=== PATIENT | female | born 1965 | race Caucasian/White ===

== ENCOUNTER 2017-12-07 10:55 | Inpatient (IN) | payer OTHER ==
[~2017-12-07] VITALS: Ht 165.1 cm; Wt 77.7 kg
--- NOTE | 2017-12-07 11:15 | ED GI/GU/ABDOMINAL COMPLAINT ---
History of Present Illness General Chief Complaint: Abdominal Pain/Flank Pain Stated Complaint: LOWER ABD PAIN/LOWER BACK PAIN Source: patient Exam Limitations: no limitations Vital Signs & Intake/Output Vital Signs & Intake/Output Vital Signs Date Time Temp Pulse Resp B/P B/P Pulse O2 O2 Flow FiO2 Mean Ox Delivery Rate 12/07 1338 97.0 70 16 106/59 95 Room Air 12/07 1106 98.0 91 18 113/69 98 Room Air Allergies Coded Allergies: No Known Drug Allergies (Intermediate, NONE 12/07/17) Reconcile Medications Aspirin (Ecotrin*) 81 MG TABLET.DR 1 TAB PO DAILY HEART/BLOOD (Reported) Calcium Carbonate (Calcium) 500 MG CALCIUM (1,250 MG) TABLET 1 CAP PO DAILY SUPPLEMENT (Reported) Cholecalciferol (Vitamin D3) (Vitamin D) 1,000 UNIT TABLET 1 TAB PO DAILY SUPPLEMENT (Reported) Cranberry Conc/Ascorbic Acid (Cranberry Plus Vitamin C Sftgl) (Unknown Strength) CAPSULE 4,200 MG PO DAILY SUPPLEMENT (Reported) Cyanocobalamin (Vitamin B-12) 1,000 MCG TABLET 1 TAB PO DAILY SUPPLEMENT ( Reported) Magnesium 250 MG TABLET 1 TAB PO DAILY SUPPLEMENT (Reported) Metoprolol Succinate 25 MG TAB 1 TAB PO DAILY HEART/BP (Reported) Milk Thistle Seed Extract (Milk Thistle) 175 MG CAPSULE 1 CAP PO DAILY SUPPLEMENT (Reported) Selenomethionine (Selenium) 200 MCG TABLET 1 TAB PO DAILY SUPPLEMENT ( Reported) Ubidecarenone (Co Q-10) 50 MG CAPSULE 1 CAP PO DAILY SUPPLEMENT (Reported) Venlafaxine HCl (Venlafaxine HCl ER) 150 MG CAP.ER.24H 1 CAP PO DAILY DEPRESSION (Reported) Triage Note: C/O LOWER ABDOMINAL AND BACK PAIN, LEG CRAMPS X 2 DAYS. LAST BM: 12/06. ALSO C/O NAUSEA AND PAIN ON URINATION. Triage Nurses Notes Reviewed? yes ? N Is pt currently ? No Onset: Gradual Duration: constant Quality/Severity: stabbing, throbbing Severity Numbers: 7 HPI: Patient is a 52-year-old female with past medical history of kidney stones, depression, and SVT currently on metoprolol who presents emergency room with a 48 hour history of gradual onset of lower abdominal pelvic pain with now pain localized to the left lower quadrant region Patient has mild associated back pain Denies similar symptoms of previous kidney stone Denies any fever chills shortness breath chest pain arm pain jaw pain Positive for nausea without emesis No change in bowel habits denies any hematuria dysuria vaginal bleeding or discharge Past History Travel History Traveled to [place] past 21 day No Medical History Any Pertinent Medical History? see below for history Cardiovascular: SVT Renal: nephrolithiasis Psychiatric: depression Surgical History Surgical History: appendectomy Psychosocial History What is your primary language [place] Tobacco Use: Never used ETOH Use: occasional use Family History Hx Contributory? No Review of Systems Review of Systems Constitutional: Reports: no symptoms. EENTM: Reports: no symptoms. Respiratory: Reports: no symptoms. Cardiovascular: Reports: no symptoms. GI: Reports: see HPI, abdominal pain. Genitourinary: Reports: no symptoms. Musculoskeletal: Reports: no symptoms. Skin: Reports: no symptoms. Neurological/Psychological: Reports: no symptoms. Hematologic/Endocrine: Reports: no symptoms. Immunologic/Allergic: Reports: no symptoms. All Other Systems: Reviewed and Negative Physical Exam Physical Exam General Appearance: mild distress Head: atraumatic Eyes: Bilateral: normal appearance. Ears, Nose, Throat, Mouth: hearing grossly normal Neck: normal inspection Respiratory: normal breath sounds Gastrointestinal: normal bowel sounds, LLQ PAIN NO PERITONEAL SIGNS Extremities: normal range of motion Neurologic/Psych: no motor/sensory deficits Skin: intact, normal color Core Measures ACS in differential dx? No Sepsis Present: No Sepsis Focused Exam Completed? No Progress Differential Diagnosis: AAA, AMI, biliary colic, bowel obstruction, colon cancer , cholecystitis, diverticulitis, endometritis, esophageal varices, gastritis, hepatitis, hernia, hemorrhoids, ischemic bowel, inflamm bowel dis, kidney stone, Nessa-Bernabe tear, ovarian cyst, ovarian torsion, pancreatitis, PID/cervicitis, peptic ulcer, PUD/GERD, perforated viscous, SBO, UTI/pyelo Plan of Care: Orders Procedure Date/time Status Clear Liquid Diet 12/07 D Active LACTIC ACID 12/07 1440 Active Patient Data 12/07 1425 Active Misc Message 12/07 1422 Active ED Holding Orders 12/07 1422 Active Admit to inpatient 12/07 1422 Active Vital Signs 12/07 1422 Active Code Status 12/07 1422 Active BLOOD CULTURE 12/07 1406 Active EKG 12/07 1403 Active Add-on Test (ER Only) 12/07 1211 Active LACTIC ACID 12/07 1157 Complete LIPASE 12/07 1140 Complete COMPREHENSIVE METABOLIC PANEL 12/07 1140 Complete CBC WITHOUT DIFFERENTIAL 12/07 1140 Complete CULTURE,URINE 12/07 1115 Active URINALYSIS 12/07 1109 Complete Current Medications Sig/Cris Start time Last Medication Dose Stop Time Status Admin Sodium Chloride 500 ML BOLUS ONE 12/07 1415 AC 12/07 (Normal Saline 0.9%) 12/07 1514 1410 Metronidazole 500 MG ONCE ONE 12/07 1400 AC (Flagyl) 12/07 1459 N/A 1 UNIT (No Carrier) Laboratory Tests 12/07/17 1157: Lactic Acid 1.3 12/07/17 1150: Anion Gap 11, Estimated GFR > 60, BUN/Creatinine Ratio 15.0, Glucose 120 H, Calcium 9.8, Total Bilirubin 0.6, AST 11 L, ALT 17, Alkaline Phosphatase 95, Total Protein 6.8, Albumin 3.9, Globulin 2.9, Albumin/Globulin Ratio 1.3, Lipase 51, CBC w Diff MAN DIFF ORDERED, RBC 4.33, MCV 91.5, MCH 31.1 H, MCHC 34.0, RDW 13.4, MPV 7.8, Gran % 76.3 H, Lymphocytes % 16.8 L, Monocytes % 5.2, Eosinophils % 1.3, Basophils % 0.4, Absolute Granulocytes 12.9 H, Absolute Lymphocytes 2.8, Absolute Monocytes 0.9 H, Absolute Eosinophils 0.2, Absolute Basophils 0.1, Platelet Estimate ADEQUATE, Normocytic RBCs VERIFIED, Normochromic RBCs VERIFIED 12/07/17 1115: Urinalysis LIGHT H, Urine Color YEL, Urine Clarity HAZY H, Urine pH 6.5, Ur Specific Molina 1.010, Urine Protein TRACE H, Urine Ketones NEG, Urine Nitrite NEG, Urine Bilirubin NEG, Urine Urobilinogen 0.2, Ur Leukocyte Esterase TRACE H , Ur Microscopic SEDIMENT EXAMINED, Urine RBC 1-3, Urine WBC 3-5 H, Ur Epithelial Cells MANY H, Urine Bacteria MANY H, Urine Mucus FEW, Urine Hemoglobin TRACE-INTACT, Urine Glucose NEG Microbiology 12/07 1425 BLOOD: Blood Culture - RECD 12/07 1406 BLOOD: Blood Culture - ORD 12/07 1115 URINE ROUT: Urine Culture - RECD After morphine and Zofran were administered patient had improvement of symptoms, patient resting comfortably at bedside. CT scan still pending. Patient was updated on blood work CT scan was resulted showing extensive diverticulitis without any perforation at this time I had a long extensive conversation with patient and how she felt of her pain control and her presentation where she was administered IV antibiotics in the emergency room for the extensive diverticulitis with patient did not feel comfortable with outpatient treatment for her presentation of pain and due to patient's extensive diverticulitis that outpatient therapy could be medically harmful for patient. Upon admission no concerns of septic shock or severe sepsis Diagnostic Imaging: Viewed by Me: CT Scan. Radiology Impression: acute abnormality Initial ED EKG: none Comments: PATIENT: KYLIE MAGANA PRESENT AGE: 52 PATIENT ACCOUNT NO: [id number] : 67 LOCATION: [facility] ORDERING PHYSICIAN: Jean Claude ROBERSON SERVICE DATE: 12/07/17 EXAM TYPE: CAT - CT ABD & PELVIS W IV CONTRAST EXAMINATION: CT ABDOMEN AND PELVIS WITH CONTRAST CLINICAL INFORMATION: 52-year-old woman with left lower quadrant pain. COMPARISON: None TECHNIQUE: Multidetector volumetric imaging was performed of the abdomen and pelvis following IV administration of 95 mL of Optiray 320 intravenous contrast. Sagittal and coronal reformatted images were obtained on the technologist's workstation. DLP: 305 mGy-cm FINDINGS: The lung bases are clear. Multiple hypodensities are seen within the liver and are statistically most likely to reflect cysts. The spleen, pancreas, adrenals, kidneys, and gallbladder are normal in appearance. There is extensive wall thickening, hyperemia, and enhancement of the proximal sigmoid colon due to acute diverticulitis. No gross perforation or drainable fluid collection is noted. There is surrounding mesenteric stranding. Nondilated loops of small bowel are unremarkable. The terminal ileum is not inflamed. The appendix is not clearly identified, although no inflammation is seen in the right lower quadrant to suggest acute appendicitis. The uterus, adnexal structures, and bladder are normal in appearance. IMPRESSION: Extensive sigmoid diverticulitis. No yudy perforation or drainable fluid collection. DICTATED BY: Pauline Mitchell MD DATE/TIME DICTATED:12/07/171339 FISH TRAPPER:NI DATE/TIME TRANSCRIBED:12/07/171339 CONFIDENTIAL, DO NOT COPY WITHOUT APPROPRIATE AUTHORIZATION. <Electronically signed in Other Vendor System> SIGNED BY: Pauline Mitchell MD 12/07/17 9514 Departure Departure Disposition: STILL A PATIENT Condition: Stable Clinical Impression Primary Impression: Diverticulitis Referrals: Jordi GUAJARDO,Philippe Gold (PCP/Family) Departure Forms: Customer Survey General Discharge Information Admission Note Spoke With: Maura Wheatley MD Documentation of Exam: Documentation of any treatments & extenuating circumstances including Concerns Regarding Discharge (functional status, medication knowledge or non-compliance, living conditions, etc.) that warrant an admission rather than observation: [ Patient requires IV antibiotics pain management gastroenterology consultation repeat labs] Critical Care Note Critical Care Note Critical Care Time: 30-74 min
[2017-12-07 12:05] LABS: ABSOLUTE BASOPHIL COUNT 0.1 /CUMM (0.0-0.2); ABSOLUTE EOSINOPHIL COUNT 0.2 /CUMM (0.0-0.7); ABSOLUTE GRANULOCYTE CT 12.9 /CUMM (1.4-6.5); ABSOLUTE LYMPH COUNT 2.8 /CUMM (1.2-3.4); ABSOLUTE MONOCYTE COUNT 0.9 /CUMM (0.10-0.60); BASOPHIL % 0.4 % (0.0-2.0); EOSINOPHIL % 1.3 % (0-5); GRANULOCYTE % 76.3 % (42.2-75.2); HEMATOCRIT 39.6 % (37-47); MEAN CORPUSCULAR HGB 31.1 PG (27.0-31.0); MEAN CORPUSCULAR VOLUME 91.5 FL (81.0-99.0); MEAN PLATELET VOLUME 7.8 FL (7.4-10.4); PLATELET COUNT 303 /CUMM (130-400); RBC DISTRIBUTION WIDTH 13.4 % (11.5-14.5); RED BLOOD CELL CT 4.33 /CUMM (4.20-5.40); WHITE BLOOD CELL COUNT 16.9 /CUMM (4.8-10.8)
--- NOTE | 2017-12-07 13:49 | CT SCAN REPORT ---
EXAMINATION: CT ABDOMEN AND PELVIS WITH CONTRAST CLINICAL INFORMATION: 52-year-old woman with left lower quadrant pain. COMPARISON: None TECHNIQUE: Multidetector volumetric imaging was performed of the abdomen and pelvis following IV administration of 95 mL of Optiray 320 intravenous contrast. Sagittal and coronal reformatted images were obtained on the technologist's workstation. DLP: 305 mGy-cm FINDINGS: The lung bases are clear. Multiple hypodensities are seen within the liver and are statistically most likely to reflect cysts. The spleen, pancreas, adrenals, kidneys, and gallbladder are normal in appearance. There is extensive wall thickening, hyperemia, and enhancement of the proximal sigmoid colon due to acute diverticulitis. No gross perforation or drainable fluid collection is noted. There is surrounding mesenteric stranding. Nondilated loops of small bowel are unremarkable. The terminal ileum is not inflamed. The appendix is not clearly identified, although no inflammation is seen in the right lower quadrant to suggest acute appendicitis. The uterus, adnexal structures, and bladder are normal in appearance. IMPRESSION: Extensive sigmoid diverticulitis. No yudy perforation or drainable fluid collection.
[2017-12-07] MEDS ORDERED: VENLAFAXINE HC150 MG PO (14:17)
[2017-12-07] MEDS ORDERED: METOPROLOL SUCC25 M1 PO (14:18)
[2017-12-07] MEDS ORDERED: SELENIUM200 MC1 PO (14:19)
[2017-12-07] MEDS ORDERED: MILK THISTLE175 M1 PO (14:26)
[2017-12-07] MEDS ORDERED: ASPIRIN EC81 M1 PO (14:26)
--- NOTE | 2017-12-07 14:26 | History & Physical ---
Rozina GUAJARDO,Chidi 12/07/17 1426: General Information and HPI History of Present Illness: Ms. Fisher is a 52-year-old female with past medical history of SVT followed by Dr. Conrad, depression, nephrolithiasis, status post appendectomy in the 1980s, and IBS followed by Dr. Ni who presents with left lower abdominal pain. The pain started Friday evening and at first she thought it was related to her ovaries. She described the pain as being in the left lower quadrant of her abdomen, constant, stabbing in nature, with no radiation. A heating pad made it feel a little better. She also had some calf pain at that time. The pain progressed over the weekend and she continued to have poor by mouth intake and nausea but no vomiting or diarrhea. She also reports some dysuria. There was no fevers, chills, shortness of breath, chest pain, diarrhea, or change in stool quality. The patient is a former smoker with a [id number] history, no alcohol or drug use. She is a family history of colon cancer in her father diagnosed at age 48. Allergies/Medications Allergies: Coded Allergies: No Known Drug Allergies (Intermediate, NONE 12/07/17) Home Med list Aspirin (Ecotrin*) 81 MG TABLET.DR 1 TAB PO DAILY HEART/BLOOD (Reported) Calcium Carbonate (Calcium) 500 MG CALCIUM (1,250 MG) TABLET 1 CAP PO DAILY SUPPLEMENT (Reported) Cholecalciferol (Vitamin D3) (Vitamin D) 1,000 UNIT TABLET 1 TAB PO DAILY SUPPLEMENT (Reported) Cranberry Conc/Ascorbic Acid (Cranberry Plus Vitamin C Sftgl) (Unknown Strength) CAPSULE 4,200 MG PO DAILY SUPPLEMENT (Reported) Cyanocobalamin (Vitamin B-12) 1,000 MCG TABLET 1 TAB PO DAILY SUPPLEMENT ( Reported) Magnesium 250 MG TABLET 1 TAB PO DAILY SUPPLEMENT (Reported) Metoprolol Succinate 25 MG TAB 1 TAB PO DAILY HEART/BP (Reported) Milk Thistle Seed Extract (Milk Thistle) 175 MG CAPSULE 1 CAP PO DAILY SUPPLEMENT (Reported) Selenomethionine (Selenium) 200 MCG TABLET 1 TAB PO DAILY SUPPLEMENT ( Reported) Ubidecarenone (Co Q-10) 50 MG CAPSULE 1 CAP PO DAILY SUPPLEMENT (Reported) Venlafaxine HCl (Venlafaxine HCl ER) 150 MG CAP.ER.24H 1 CAP PO DAILY DEPRESSION (Reported) Past History Travel History Traveled to [place] past 21 day No Medical History Cardiovascular: SVT Renal: nephrolithiasis Musculoskeletal: LYME'S DISEASE Psychiatric: depression Endocrine: diabetes Blood Disorders: BLOOD CLOT LEFT ARM Surgical History Surgical History: appendectomy Past Family/Social History Psychosocial History Smoking Status: Former Smoker ETOH Use: occasional use Illicit Drug Use: denies illicit drug use Review of Systems Review of Systems Constitutional: Reports: no symptoms. EENTM: Reports: no symptoms. Cardiovascular: Reports: no symptoms. Respiratory: Reports: no symptoms. GI: Reports: see HPI. Genitourinary: Reports: no symptoms. Musculoskeletal: Reports: see HPI. Skin: Reports: no symptoms. Neurological/Psychological: Reports: no symptoms. Hematologic/Endocrine: Reports: no symptoms. Immunologic/Allergic: Reports: no symptoms. All Other Systems: Reviewed and Negative Exam & Diagnostic Data Last 24 Hrs of Vital Signs/I&O Vital Signs Date Time Temp Pulse Resp B/P B/P Pulse O2 O2 Flow FiO2 Mean Ox Delivery Rate 12/07 1527 98.0 76 16 105/58 96 Room Air 12/07 1338 97.0 70 16 106/59 95 Room Air 12/07 1106 98.0 91 18 113/69 98 Room Air Intake & Output 12/07 1600 / 0800 12/07 0000 Intake Total 2200 Output Total Balance 2200 Intake, IV 2200 Intake, Oral 0 Patient 78.471 kg Weight Weight Maranda Lift Measurement Method Physical Exam General Appearance Alert, Oriented X3, Cooperative, No Acute Distress Cardiovascular Regular Rate, Normal S1, Normal S2 Lungs Clear to Auscultation Abdomen tenderness in left lower quadrant, no rebound Neurological Normal Speech, Strength at 5/5 X4 Ext, Sensation Intact, Cranial Nerves 3-12 NL Extremities No Edema, Normal Pulses, No Tenderness/Swelling Last 24 Hrs of Labs/Shoaib: Laboratory Tests 12/07/17 1157: Lactic Acid 1.3 12/07/17 1150: Anion Gap 11, Estimated GFR > 60, BUN/Creatinine Ratio 15.0, Glucose 120 H, Calcium 9.8, Total Bilirubin 0.6, AST 11 L, ALT 17, Alkaline Phosphatase 95, Total Protein 6.8, Albumin 3.9, Globulin 2.9, Albumin/Globulin Ratio 1.3, Lipase 51, CBC w Diff MAN DIFF ORDERED, RBC 4.33, MCV 91.5, MCH 31.1 H, MCHC 34.0, RDW 13.4, MPV 7.8, Gran % 76.3 H, Lymphocytes % 16.8 L, Monocytes % 5.2, Eosinophils % 1.3, Basophils % 0.4, Absolute Granulocytes 12.9 H, Absolute Lymphocytes 2.8, Absolute Monocytes 0.9 H, Absolute Eosinophils 0.2, Absolute Basophils 0.1, Platelet Estimate ADEQUATE, Normocytic RBCs VERIFIED, Normochromic RBCs VERIFIED 12/07/17 1115: Urinalysis LIGHT H, Urine Color YEL, Urine Clarity HAZY H, Urine pH 6.5, Ur Specific Duncan 1.010, Urine Protein TRACE H, Urine Ketones NEG, Urine Nitrite NEG, Urine Bilirubin NEG, Urine Urobilinogen 0.2, Ur Leukocyte Esterase TRACE H , Ur Microscopic SEDIMENT EXAMINED, Urine RBC 1-3, Urine WBC 3-5 H, Ur Epithelial Cells MANY H, Urine Bacteria MANY H, Urine Mucus FEW, Urine Hemoglobin TRACE-INTACT, Urine Glucose NEG Microbiology 12/07 1430 BLOOD: Blood Culture - RECD 12/07 1425 BLOOD: Blood Culture - RECD 12/07 1115 URINE ROUT: Urine Culture - RECD Assessment/Plan Assessment: Ms. Fisher is a 52-year-old female with past medical history of SVT followed by Dr. Conrad, depression, nephrolithiasis, status post appendectomy in the , and IBS followed by Dr. Ni who presents with left lower abdominal pain. On presentation, vital signs were T 98.0, HR 91, RR 18, BP 113/69, saturating 90 % on room air. Laboratories were significant for white blood cell count 16.9, Hg 13.5, glucose 120, calcium 9.8, LFTs negative, urinalysis showing 35 WBCs, trace leukocyte esterase, and many epithelial cells. CT abdomen/pelvis showed multiple hypodensities within the liver and extensive wall thickening, hyperemia , enhancement of the proximal sigmoid colon due to acute diverticulitis with no gross perforation drainable fluid collection. She received 1 L normal saline, ketorolac, ondansetron, and morphine in the emergency room. She will be admitted to general medicine and treated for the following problems: 1. Acute sigmoid diverticulitis #Acute sigmoid diverticulitis: Patient presents with signs, symptoms, and imaging consistent with acute sigmoid diverticulitis with no complications. -Ceftriaxone and metronidazole -IV fluid hydration -Clear liquid diet, advance as tolerated #Chronic medical problems: -Continue home metoprolol, venlafaxine, and aspirin DVT prophylaxis with enoxaparin Clear liquid diet Full code As Ranked By This Provider Problem List: 1. Diverticulitis Core Measures/Misc (06/22) Acute Coronary Syndrome ACS Diagnosis: No Congestive Heart Failure Congestive Heart Failure Diagnosis No Cerebrovascular Accident CVA/TIA Diagnosis: No VTE (View Protocol) VTE Risk Factors Age>40 No Mechanical VTE Prophylaxis d/t N/A MechProphylax Ordered No VTE Pharm Prophylaxis d/t NA PharmProphylax ordered Sepsis (View protocol) Sepsis Present: No StuCarlosai 12/07/17 1552: Resident Review Statement Resident Statement: agreed with dietetic intern Other Findings: 52-year-old woman with past medical history of SVTs on metoprolol, depression, kidney stones and IBS presented to ER with complaint of lower abdominal pain more on the left upper quadrant for last 2 days. She describes the pain as constant, nonradiating associated with nausea and dysuria. She denies any fever , chills, vomiting, diarrhea or constipation. Other review of system is negative. She took Tylenol without much relief. Her family history is positive for colon cancer in father diagnosed at age of 48. She gets regular colonoscopy every 5 years. Vitals on admission: Temperature 90.8, pulse 91, respiratory rate 18, blood pressure 113/69 oxygen saturation 100% on room air Pertinent physical exam findings: Tenderness on palpation of left lower quadrant. No rebound tenderness, guarding or rigidity. Bowel sounds present. Pertinent labs: WBC 16.9 CT abdomen pelvis with IV contrast showed extensive sigmoid diverticulitis. No yudy perforation or drainable fluid collection. In ER she was given IV fluids, IV ceftriaxone and Flagyl, pain medications and Zofran. Blood and urine culture were sent. Assessment and plan 52-year-old woman presented to ER with complaint of lower abdominal pain mostly on the left lower quadrant associated with nausea and dysuria. CAT scan of abdomen showed evidence of extensive sigmoid diverticulitis. We will admit her on general medicine floor. Monitor Vitals every shift. Continue antibiotics and antiemetics. Start clear liquid diet and advance as tolerated. Follow-up cultures. Continue home medications except supplements. Continue metoprolol with holding parameters. Pain management pathway. Loganx for DVT prophylaxis. Full code Dioni GUAJARDO,Maura 12/07/173: Attending MD Review Statement Attending Statement Attending MD Statement: examined this patient, discuss w/resident/PA/CRYSTAL CALIBRATOR, agreed w/resident/PA/CRYSTAL CALIBRATOR, reviewed EMR data (avail) Attending Assessment/Plan: 52F PMH SVT, IBS presenting with a week of progressive generalized abdominal pain, worse when eating, found to have significant sigmoid diverticulitis on imaging. Denies fever, chills, chest pain, SOB, diarrhea, dysuria, constipation. Patient's father of colon cancer at age 48 so she has had screening colonoscopies for >10 years, most recently 5 years ago with 2-3 polyps that were removed. She is currently comfortable and has no complaints, afebrile, hemodynamically stable. 1. Acute diverticulitis Plan - Admit to general medicine - Ceftriaxone and Flagyl - Clear liquid diet, advance as tolerated - Continue home medications - DVT PPx
[2017-12-07] MEDS ORDERED: MAGNESIUM250 M3 PO (14:27)
[2017-12-07] MEDS ORDERED: CO Q-1050 M1 PO (14:27)
[2017-12-07] MEDS ORDERED: VITAMIN B-121000 MC3 PO (14:27)
[2017-12-07] MEDS ORDERED: CALCIUM500 M1 PO (14:28)
[2017-12-07] MEDS ORDERED: VITAMIN D1000 UNIT PO (14:28)
[2017-12-07] MEDS ORDERED: CRANBERRY PLUS1 EAC1 PO (14:29)
[2017-12-07 17:15] VITALS: BP 91/51
--- NOTE | 2017-12-07 19:35 | Admission Certification ---
Admission Certification Certification Statement - As attending physician, I certify that at the time of - admission, based on clinical presentation, severity of - symptoms, need for further diagnostic testing and - therapeutic interventions, and risk of adverse outcomes - without in-hospital treatment, in my clinical assessment, - this patient requires an acute hospital stay for a minimum - of two nights or longer. I have also considered psychsocial - factors such as support system, advanced age, financial - issues, cognitive issues, and failed out-patient treatments, - past re-admission history, safety of patient, and lack of - compliance as applicable. Specific rationale supporting this admission is: Significant acute diverticulitis
[2017-12-07 22:28] VITALS: BP 120/62
[2017-12-08 06:10] VITALS: BP 122/60
--- NOTE | 2017-12-08 07:10 | PN- Housestaff ---
See Addendum Subjective Follow-up For: diverticulitis Subjective: No overnight events. She is still having some abdmonial pain when walking and moving, but well controlled with meds. No V/D. She ate a littel broth last night but doesn't think she is ready for full liquids quite yet. Review of Systems Constitutional: Reports: no symptoms. EENTM: Reports: no symptoms. Cardiovascular: Reports: no symptoms. Respiratory: Reports: no symptoms. Gastrointestinal: Reports: see HPI. Genitourinary: Reports: no symptoms. Musculoskeletal: Reports: no symptoms. Skin: Reports: no symptoms. Neurological/Psychological: Reports: no symptoms. Hematologic/Endocrine: Reports: no symptoms. Immunologic/Allergic: Reports: no symptoms. Objective Last 24 Hrs of Vital Signs/I&O Vital Signs Date Time Temp Pulse Resp B/P B/P Pulse O2 O2 Flow FiO2 Mean Ox Delivery Rate 12/08 0610 97.4 71 18 122/60 96 / 2228 98.0 72 18 120/62 96 Room Air / 2028 98.5 / 1715 98.0 85 18 91/51 95 Room Air 03/04 1527 98.0 76 16 105/58 96 Room Air 03/04 1338 97.0 70 16 106/59 95 Room Air 03/04 1106 98.0 91 18 113/69 98 Room Air Intake & Output / 0800 /05 0000 / 1600 Intake Total 910 383 5411 Output Total Balance 310 761 0203 Intake, IV 400 2200 Intake, Oral 240 480 0 Patient 78.471 kg 78.471 kg Weight Weight Reported by Patient Maranda Lift Measurement Method Physical Exam General Appearance: Alert, Oriented X3, Cooperative, No Acute Distress Cardiovascular: Regular Rate, Normal S1, Normal S2 Lungs: Clear to Auscultation Abdomen: Normal Bowel Sounds, Soft, LLQ tenderness Neurological: Normal Speech Extremities: No Edema, Normal Pulses, No Tenderness/Swelling Current Medications: Current Medications Sig/Cris Start time Last Medication Dose Route Stop Time Status Admin Acetaminophen 650 MG Q8P PRN 12/07 1445 AC / PO 1905 Aspirin Buffered 81 MG DAILY 12/08 1000 AC PO Ceftriaxone Sodium 1,000 MG DAILY 12/08 1000 AC IV Ceftriaxone Sodium 1,000 MG ONCE ONE 12/07 1400 DC 12/07 IV 12/07 1401 1438 Enoxaparin Sodium 40 MG DAILY 12/08 1000 AC SC Influenza Virus 0.5 ML ONCE ONE 12/07 1730 DC 12/07 Vaccine IM 12/07 1731 2026 Ketorolac 30 MG ONCE ONE 12/07 1415 DC 12/07 Tromethamine IV 12/07 1416 1410 Ketorolac 0 .STK-MED ONE 12/07 1411 DC Tromethamine .ROUTE Lactated Ringer's 1,000 ML Q13H 12/07 1745 AC 12/07 IV 1747 Metoprolol Succinate 25 MG DAILY 12/08 1000 AC PO Metronidazole 500 MG IQ8 12/08 0000 AC 12/07 N/A 1 UNIT IV 2342 Metronidazole 500 MG ONCE ONE 12/07 1400 DC 12/07 N/A 1 UNIT IV 12/07 1459 1516 Morphine Sulfate 4 MG ONCE ONE 12/07 1145 DC 12/07 IV 12/07 1146 1213 Ondansetron HCl 4 MG Q6P PRN 12/07 1615 AC IV Ondansetron HCl 4 MG ONCE ONE 12/07 1145 DC 03 IV 12/07 1146 1213 Sodium Chloride 500 ML BOLUS ONE 12/07 1415 DC / IV 12/07 1514 1410 Sodium Chloride 500 ML BOLUS ONE 12/07 1145 DC 03/ IV / 1244 1213 Venlafaxine HCl 150 MG 0800 / 0800 AC PO Last 24 Hrs of Lab/Shoaib Results Last 24 Hrs of Labs/Mics: Laboratory Tests 12/07/17 1440: Lactic Acid Cancelled 12/07/17 1157: Lactic Acid 1.3 12/07/17 1150: Anion Gap 11, Estimated GFR > 60, BUN/Creatinine Ratio 15.0, Glucose 120 H, Calcium 9.8, Total Bilirubin 0.6, AST 11 L, ALT 17, Alkaline Phosphatase 95, Total Protein 6.8, Albumin 3.9, Globulin 2.9, Albumin/Globulin Ratio 1.3, Lipase 51, CBC w Diff MAN DIFF ORDERED, RBC 4.33, MCV 91.5, MCH 31.1 H, MCHC 34.0, RDW 13.4, MPV 7.8, Gran % 76.3 H, Lymphocytes % 16.8 L, Monocytes % 5.2, Eosinophils % 1.3, Basophils % 0.4, Absolute Granulocytes 12.9 H, Absolute Lymphocytes 2.8, Absolute Monocytes 0.9 H, Absolute Eosinophils 0.2, Absolute Basophils 0.1, Platelet Estimate ADEQUATE, Normocytic RBCs VERIFIED, Normochromic RBCs VERIFIED 12/07/17 1115: Urinalysis LIGHT H, Urine Color YEL, Urine Clarity HAZY H, Urine pH 6.5, Ur Specific Alexander 1.010, Urine Protein TRACE H, Urine Ketones NEG, Urine Nitrite NEG, Urine Bilirubin NEG, Urine Urobilinogen 0.2, Ur Leukocyte Esterase TRACE H , Ur Microscopic SEDIMENT EXAMINED, Urine RBC 1-3, Urine WBC 3-5 H, Ur Epithelial Cells MANY H, Urine Bacteria MANY H, Urine Mucus FEW, Urine Hemoglobin TRACE-INTACT, Urine Glucose NEG Microbiology 12/07 1430 BLOOD: Blood Culture - RECD 12/07 1425 BLOOD: Blood Culture - RECD 12/07 1115 URINE ROUT: Urine Culture - RECD Assessment/Plan Assessment: Ms. Fisher is a 52-year-old female with past medical history of SVT followed by Dr. Conrad, depression, nephrolithiasis, status post appendectomy in the , and IBS followed by Dr. Ni who presented with left lower abdominal pain. Problem List: 1. Acute sigmoid diverticulitis #Acute sigmoid diverticulitis: Patient presents with signs, symptoms, and imaging consistent with acute sigmoid diverticulitis with no complications. She is still having some pain this AM. -Ceftriaxone and metronidazole -IV fluid hydration -Clear liquid diet, advance as tolerated -Ondansetron as needed -Acetaminophen for severe pain #Chronic medical problems: -Continue home metoprolol, venlafaxine, and aspirin DVT prophylaxis with enoxaparin Clear liquid diet Full code Problem List: 1. Diverticulitis Pain Ratin Pain Location: abd Pain Goal: Remain pain free Pain Plan: see a/p Tomorrow's Labs & Rationales: none
[2017-12-08 14:42] VITALS: BP 118/62
[2017-12-08] MEDS ORDERED: CIPRO500 M1 PO (15:00)
[2017-12-08] MEDS ORDERED: FLAGYL500 MG PO (15:00)
--- NOTE | 2017-12-08 15:02 | Patient Discharge Instructions ---
Discharge Instructions General Discharge Information You were seen/treated for: Acute diverticulitis Watch for these problems: Fever, chest pain, shortness of breath Special Instructions: Please take all medications as directed. Please follow-up with primary care. Diet Continue normal diet: Yes Activity Full Activity/No Limits: Yes Acute Coronary Syndrome Inclusion Criteria At DC or during hospital stay patient has or had the following: ACS DIAGNOSIS No Discharge Core Measures Meds if any: Prescribed or Continued at Discharge Meds if any: NOT Prescribed or Continued at Discharge Congestive Heart Failure Inclusion Criteria At DC or during hospital stay patient has or had the following: CHF DIAGNOSIS No Discharge Core Measures Meds if any: Prescribed or Continued at Discharge Meds if any: NOT Prescribed or Continued at Discharge Cerebrovascular accident Inclusion Criteria At DC or during hospital stay patient has or had the following: CVA/TIA Diagnosis No Discharge Core Measures Meds if any: Prescribed or Continued at Discharge Meds if any: NOT Prescribed or Continued at Discharge Venous thromboembolism Inclusion Criteria VTE Diagnosis No VTE Type NONE VTE Confirmed by (Test) NONE Discharge Core Measures - Per Current guidelines, there needs to be overlap - treatment for the first 5 days of Warfarin therapy. - If discharged on Warfarin prior to 5 days of - overlap therapy, the patient will need to be - assessed for post discharge needs including - *Post discharge parental anticoagulation - *Warfarin and/or parental anticoagulation education - *Follow up date to check INR post discharge At least 5 days overlap therapy as Inpatient No Meds if any: Prescribed or Continued at Discharge Note: Overlap Therapy is Warfarin and Anticoagulant Meds if any: NOT Prescribed or Continued at Discharge
[2017-12-08 21:58] VITALS: BP 98/70
--- NOTE | 2017-12-09 07:15 | PN- Housestaff ---
See Addendum Subjective Follow-up For: Diverticulitis Subjective: No overnight events. She feels better this morning, still some abd pain. Had one episode of diarrhea last night, no emesis. She feels ready to advance her diet. Review of Systems Constitutional: Reports: no symptoms. EENTM: Reports: no symptoms. Cardiovascular: Reports: no symptoms. Respiratory: Reports: no symptoms. Gastrointestinal: Reports: see HPI. Genitourinary: Reports: no symptoms. Musculoskeletal: Reports: no symptoms. Skin: Reports: no symptoms. Neurological/Psychological: Reports: no symptoms. Hematologic/Endocrine: Reports: no symptoms. Immunologic/Allergic: Reports: no symptoms. Objective Last 24 Hrs of Vital Signs/I&O Vital Signs Date Time Temp Pulse Resp B/P B/P Pulse O2 O2 Flow FiO2 Mean Ox Delivery Rate 12/08 2158 98.7 73 20 98/70 98 Room Air 12/08 1442 98.1 71 20 118/62 98 Room Air 12/08 1105 72 90/40 Intake & Output 12/09 0800 12/09 0000 12/08 1600 Intake Total 5165 823 5597 Output Total Balance 1290 958 5663 Intake, IV 8005 934 0819 Intake, Oral 480 Physical Exam General Appearance: Alert, Oriented X3, Cooperative, No Acute Distress Cardiovascular: Regular Rate Lungs: Clear to Auscultation Abdomen: Normal Bowel Sounds, Soft, mild tenderness LLQ Extremities: No Edema, Normal Pulses, No Tenderness/Swelling Current Medications: Current Medications Sig/Cris Start time Last Medication Dose Route Stop Time Status Admin Acetaminophen 975 MG Q8P PRN 12/08 1430 AC PO Acetaminophen 1,000 MG Q8P PRN / 0745 DC N/A 1 UNIT IV Acetaminophen 650 MG Q8P PRN / 1445 DC / PO 0808 Aspirin Buffered 81 MG DAILY 12/08 1000 AC / PO 1058 Ceftriaxone Sodium 1,000 MG DAILY / 1000 AC / IV 1107 Enoxaparin Sodium 40 MG DAILY 12/08 1000 AC 12/08 SC 1058 Ibuprofen 600 MG Q6P PRN / 1430 AC / PO 1452 Lactated Ringer's 1,000 ML Q8H / 1130 AC 12/09 IV 0451 Lactated Ringer's 1,000 ML Q13H 12/07 1745 DC 12/08 IV 0803 Metoprolol Succinate 25 MG DAILY 12/08 1000 AC PO Metronidazole 500 MG IQ8 12/08 0000 AC 12/09 N/A 1 UNIT IV 0028 Ondansetron HCl 4 MG Q6P PRN 12/07 1615 AC 12/08 IV 1830 Patient Medication 1 ED ONE ONE 12/08 1600 DC Teaching ED 12/08 1601 Venlafaxine HCl 150 MG 0800 12/08 0800 AC 12/08 PO 0803 Assessment/Plan Assessment: Ms. Fisher is a 52-year-old female with past medical history of SVT followed by Dr. Conrad, depression, nephrolithiasis, status post appendectomy in the , and IBS followed by Dr. Ni who presented with left lower abdominal pain. Problem List: 1. Acute sigmoid diverticulitis #Acute sigmoid diverticulitis: Patient presents with signs, symptoms, and imaging consistent with acute sigmoid diverticulitis with no complications. Pain is improved and she wants to advance her diet. She can potentially go home later today if she tolerates food. -Ceftriaxone and metronidazole. At discharge, ciprofloxacin and metronidazole for total of 10 days -IV fluid hydration -Full liquid diet, advance as tolerated -Ondansetron as needed -Acetaminophen for severe pain #Chronic medical problems: -Continue home metoprolol, venlafaxine, and aspirin DVT prophylaxis with enoxaparin Full liquid diet Full code Problem List: 1. Diverticulitis Pain Ratin Pain Location: no Pain Goal: Remain pain free Pain Plan: see a/p Tomorrow's Labs & Rationales: no
[2017-12-09 07:36] VITALS: BP 108/66
[2017-12-09] MEDS ORDERED: FLAGYL500 MG PO (13:56)
[2017-12-09] MEDS ORDERED: CIPRO500 M1 PO (13:56)
--- NOTE | 2017-12-09 13:57 | Discharge Summary ---
Visit Information Visit Dates Admission Date: 12/07/17 Discharge Date: 12/09/17 Hospital Course Course Attending Physician: Maura Wheatley MD Primary Care Physician: Jordi GUAJARDO,Philippe Gold Hospital Course: Ms. Fisher is a 52-year-old female with past medical history of SVT followed by Dr. Conrad, depression, nephrolithiasis, status post appendectomy in the 1980s, and IBS followed by Dr. Ni who presented with left lower abdominal pain. On presentation, vital signs were T 98.0, HR 91, RR 18, BP 113/69, saturating 90 % on room air. Laboratories were significant for white blood cell count 16.9, Hg 13.5, glucose 120, calcium 9.8, LFTs negative, urinalysis showing 35 WBCs, trace leukocyte esterase, and many epithelial cells. CT abdomen/pelvis showed multiple hypodensities within the liver and extensive wall thickening, hyperemia , enhancement of the proximal sigmoid colon due to acute diverticulitis with no gross perforation drainable fluid collection. She received 1 L normal saline, ketorolac, ondansetron, and morphine in the emergency room. She was admitted to general medicine and treated for the following problems: 1. Acute sigmoid diverticulitis #Acute sigmoid diverticulitis: Patient presents with signs, symptoms, and imaging consistent with acute sigmoid diverticulitis with no complications. She was started on ceftriaxone and metronidazole and her diet was advanced. She was also given IV fluid hydration, ondansetron as needed, and acetaminophen for pain. She is now tolerating regular food well and is being discharged on ciprofloxacin and metronidazole for total of 10 days. #Chronic medical problems: Her home medications were continued. Allergies: Coded Allergies: No Known Drug Allergies (Intermediate, NONE 12/07/17) Disposition Summary Disposition Principal Diagnosis: 1. Acute sigmoid diverticulitis Additional Diagnosis: 1. Acute sigmoid diverticulitis Discharge Disposition: home or self care Discharge Instructions General Discharge Information Code Status: Full Code Patient's Diet: Regular Patient's Activity: As tolerated Follow-Up Instructions/Appts: Please take all medications as directed. Please follow-up with primary care. Medications at Discharge Discharge Medications: Continue taking these medications: Venlafaxine HCl (Venlafaxine HCl ER) 150 MG CAP.ER.24H 1 Capsule ORAL DAILY Qty = 30 Comments: Last Taken:12/09/17 Time:0830 AM Metoprolol Succinate (Metoprolol Succinate) 25 MG TAB 1 Tablet ORAL DAILY Qty = 30 Comments: Last Taken:12/09/17 Time:0830 AM Selenomethionine (Selenium) 200 MCG TABLET 1 Tablet ORAL DAILY Comments: NOT GIVEN IN HOSPITAL Aspirin (Ecotrin*) 81 MG TABLET.DR 1 Tablet ORAL DAILY Comments: Last Taken:12/09/17 Time:1045 AM Milk Thistle Seed Extract (Milk Thistle) 175 MG CAPSULE 1 Capsule ORAL DAILY Comments: NOT GIVEN IN HOSPITAL Cyanocobalamin (Vitamin B-12) 1,000 MCG TABLET 1 Tablet ORAL DAILY Comments: NOT GIVEN IN HOSPITAL Magnesium (Magnesium) 250 MG TABLET 1 Tablet ORAL DAILY Comments: NOT GIVEN IN HOSPITAL Ubidecarenone (Co Q-10) 50 MG CAPSULE 1 Capsule ORAL DAILY Comments: NOT GIVEN IN HOSPITAL Calcium Carbonate (Calcium) 500 MG CALCIUM (1,250 MG) TABLET 1 Capsule ORAL DAILY Comments: NOT GIVEN IN HOSPITAL Cholecalciferol (Vitamin D3) (Vitamin D) 1,000 UNIT TABLET 1 Tablet ORAL DAILY Comments: NOT GIVEN IN HOSPITAL Cranberry Conc/Ascorbic Acid (Cranberry Plus Vitamin C Sftgl) (Unknown Strength) CAPSULE 4,200 Milligram ORAL DAILY Comments: NOT GIVEN IN HOSPITAL Start taking the following new medications: Ciprofloxacin HCl (Cipro) 500 MG TABLET 1 Tablet ORAL TWICE DAILY Qty = 14 No Refills Instructions: . Comments: NOT GIVEN IN HOSPITAL Metronidazole (Flagyl) 500 MG TABLET 1 Tablet ORAL TWICE DAILY Qty = 14 No Refills Instructions: . Comments: NOT GIVEN IN HOSPITAL Copies To: Jordi GUAJARDO,Philippe Gold
[2017-12-09 15:00] VITALS: BP 108/64
== END 2017-12-09 15:26 | DRG 392 ==
LOC: ERH 10:55 → ERHI 14:22 → 2NB 14:22 → ENRESERV 15:23 → ENTRNSPT 16:14 → EDTRNSPTSTS 16:27 → EDTRNSPT 16:27 → 2NB 16:48 → CMPTRNSPT 16:55 → ENPENDDIS 12-09 14:00 → 2NB 12-09 15:26
PROVIDERS: Physician Assistant
DX: K57.32 Diverticulitis of large intestine without perforation or abscess without bleeding (principal); I47.1 Supraventricular tachycardia; E11.9 Type 2 diabetes mellitus without complications; K58.9 Irritable bowel syndrome, unspecified; Z87.891 Personal history of nicotine dependence; Z80.0 Family history of malignant neoplasm of digestive organs; F32.9 Major depressive disorder, single episode, unspecified; Z86.19 Personal history of other infectious and parasitic diseases
CPT/HCPCS: 2NBSP; 74177; 81001; 87040; 87086; 93005; 93010; 96365; 96375; J0131; J0696; J1650; J1885; J2405; J7040; J7120; Q2036